=== PATIENT | male | born 1950 | race Hispanic/Latino ===

== ENCOUNTER 2017-12-26 01:01 | Emergency (ER) | payer BC ==
[2017-12-26 01:02] VITALS: BMI 30.2
[2017-12-26 01:15] VITALS: TEMP 98.5; O2SAT 98
[2017-12-26] MEDS ORDERED: Sodium Chloride 0.9% 1,000 ML IV ONE (01:25)
--- NOTE | 2017-12-26 01:27 | C.PDOC ---
History Of Present Illness 67 y/o male presents to the ED complaining left, upper chest wall pain that began a few hours ago. The patient denies any injury/trauma. 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 Time Seen by Provider: 12/26/17 01:18 Chief Complaint (Nursing): Chest Pain History Per: Patient History/Exam Limitations: no limitations Onset/Duration Of Symptoms: Hrs Current Symptoms Are (Timing): Still Present Quality: "Pain" Recent travel outside of the [place]: No Past Medical History Reviewed: Historical Data, Nursing Documentation, Vital Signs Vital Signs: Last Vital Signs Temp 98.5 F 12/26/17 01:12 Pulse 76 12/26/17 01:12 Resp 18 12/26/17 01:12 BP 175/91 H 12/26/17 01:12 Pulse Ox 98 12/26/17 01:12 - Medical History PMH: HTN, Hypercholesterolemia Denies: Chronic Kidney Disease Other Surgeries: Right Shoulder surgery, Parathyroid surgery, 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 Constitutional: Negative for: Fever Cardiovascular: Positive for: Chest Pain Respiratory: Negative for: Cough, Shortness of Breath Gastrointestinal: Positive for: Nausea, Vomiting Physical Exam - Physical Exam Appears: Well, Non-toxic, No Acute Distress Skin: Normal Color, Warm, Dry Head: Atraumatic, Normacephalic Eye(s): bilateral: PERRL, EOMI Ear(s): Bilateral: Normal Oral Mucosa: Moist Neck: Supple Chest: Other (digitally reprodicible pain to the left, upper chest wall) Cardiovascular: Rhythm Regular, No Murmur Respiratory: Normal Breath Sounds, No Rales, No Rhonchi, No Wheezing Gastrointestinal/Abdominal: Soft, No Tenderness, No Distention Extremity: Normal ROM Extremity: Bilateral: Normal Color And Temperature, Normal ROM Neurological/Psych: Oriented x3, Normal Speech Gait: Steady ED Course And Treatment - Laboratory Results Result Diagrams: 12/26/17 01:58 12/26/17 01:58 ECG: Interpreted By Me, Viewed By Me ECG Rhythm: Sinus Rhythm ECG Interpretation: Normal, No Acute Changes Interpretation Of ECG: NSR, normal tracings. Rate From EC O2 Sat by Pulse Oximetry: 98 (RA) Pulse Ox Interpretation: Normal Medical Decision Making Medical Decision Making: Impression: 67 y/o male presents to the ED complaining left, upper chest wall pain that began a few hours ago Plan: -CT chest -EKG -CMP -Troponin I -CBC -D-Dimer -Toradol 30 mg IV Disposition Counseled Patient/Family Regarding: Diagnosis - Disposition Referrals: Subha Blackmon MD [Primary Care Provider] - Disposition: HOME/ ROUTINE Disposition Time: 03:04 Condition: STABLE Prescriptions: Naproxen 375 mg PO TIDPC #14 tablet Instructions: Costochondritis (DC) Forms: [facility] (German) - POA Present On Arrival: None - Clinical Impression Clinical Impression: Chest wall pain - PA / [employer] / Resident Statement MD/DO has reviewed & agrees with the documentation as recorded. - Scribe Statement The provider has reviewed the documentation as recorded by the Scribe (Delores Palomo) Provider Attestation: All medical record entries made by the Scribe were at my direction and personally dictated by me. I have reviewed the chart and agree that the record accurately reflects my personal performance of the history, physical exam, medical decision making, and the department course for this patient. I have also personally directed, reviewed, and agree with the discharge instructions and disposition.
[2017-12-26] MEDS ORDERED: Iohexol 240 (50 ml) ONE (01:43)
[2017-12-26 02:15] LABS: BASO # 0.1 K/uL (0.0-0.2); BASO % 0.7 % (0.0-2.0); EOS # 0.2 K/uL (0.0-0.7); HEMOGLOBIN 16.4 g/dL (12.0-18.0); LYMPH # 2.1 K/uL (1.0-4.3); LYMPH % 27.6 % (20.0-40.0); MEAN CELL VOLUME 92.2 fL (80.0-94.0); MEAN CORPUSCULAR HEMOGLOBIN 32.3 pg (27.0-31.0); MONO # 0.6 K/uL (0.0-0.8); MONO % 7.6 % (0.0-10.0); NEUT # 4.7 K/uL (1.8-7.0); NEUT % 62.1 % (50.0-75.0); NRBC % 0.1 % (0.0-2.0); RBC 5.08 Mil/uL (4.40-5.90); RED CELL DISTRIBUTION WIDTH 13.5 % (11.5-14.5); WHITE BLOOD COUNT 7.6 K/uL (4.8-10.8)
[2017-12-26 02:18] LABS: ALB/GLOB RATIO 1.3 (1.0-2.1); ALBUMIN 4.3 g/dL (3.5-5.0); ALT/SGPT 47 U/L (21-72); AST/SGOT 30 U/L (17-59); BLOOD UREA NITROGEN 20 mg/dL (9-20); CALCIUM 8.9 mg/dl (8.6-10.4); GFR NON-AFRICAN AMERICAN > 60
[2017-12-26 03:06] VITALS: BP 161/91; PULSE 62; RESP 14
--- NOTE | 2017-12-26 11:41 | CT ---
Date of service: 12/26/2017 PROCEDURE: CT Chest without contrast HISTORY: chest pain COMPARISON: 06/17/2013. single-view chest TECHNIQUE: Contiguous axial images were obtained through the chest without intravenous contrast enhancement. Sagittal and coronal reconstructions were performed. Radiation dose (DLP): 745.58 mGy-cm. This CT exam was performed using one or more of the following dose reduction techniques: Automated exposure control, adjustment of the mA and/or kV according to patient size, and/or use of iterative reconstruction technique. FINDINGS: LUNGS: Clear lungs. Visualized airway clear MEDIASTINUM: Unremarkable thoracic aorta. No aneurysm. Normal sized heart. Main pulmonary artery unremarkable. No vascular congestion. No lymphadenopathy. PLEURA: No pleural fluid. No pneumothorax. BONES: No fracture. No destructive lesion. UPPER ABDOMEN: Grossly unremarkable. OTHER FINDINGS: None. IMPRESSION: No significant or acute findings to account for/ related to the clinical presentation. Concordant results (preliminary interpretation) provided by [employer]. Procedure Completed: 01:46. Preliminary Report: Dictated and Authenticated: 02:32. Final Interpretation: 11:39. December 26, 2017. Is
--- NOTE | 2017-12-26 20:40 | CARD ---
APPROVED REPORT Date of service: 12/26/2017 EKG Measurement Heart [id number] <Conclusion> Normal sinus rhythm Normal ECG
== END 2017-12-26 03:14 | disposition home or self-care (01) ==
LOC: SUPCPDRO 01:01 → C.ER 01:01
DX: R07.89 Other chest pain (principal)
CPT/HCPCS: 71250; 80053; 84484; 85025; 85378; 93005; 96374; 99283; J1885; J7030